=== PATIENT | male | born 1975 | race Caucasian/White ===

== ENCOUNTER 2017-07-20 22:50 | Emergency (ER) | payer OTHER ==
[~2017-07-20] VITALS: Ht 167.6 cm; Wt 68.6 kg
[2017-07-20 23:20] VITALS: Ht 167.6 cm; Wt 68.6 kg
[2017-07-21] MEDS ORDERED: SOD CHLORIDE 0.9% 1,000 ML IV STA (02:28)
[2017-07-21] MEDS ORDERED: ONDANSETRON 4 MG INJ IV STA (02:28)
[2017-07-21] MEDS ORDERED: KETOROLAC 30 MG INJ IV STA (02:28)
[2017-07-21] MEDS ORDERED: ACETAMINOPHEN 325 MG TAB PO ONE (02:30)
[2017-07-21 03:14] LABS: ABNORMAL IP MESSAGE 1; BASOPHILS % 0.2 % (0.0-2.0); HEMATOCRIT 42.7 % (42.0-52.0); HEMOGLOBIN 14.8 g/dl (14.0-18.0); LYMPHOCYTES # 1.9 10^3/ul (0.8-2.9); LYMPHOCYTES % 13.6 % (15.0-51.0); MEAN CORPUSCULAR HEMOGLOBIN 29.2 pg (29.0-33.0); MEAN CORPUSCULAR HGB CONC 34.7 g/dl (32.0-37.0); MEAN CORPUSCULAR VOLUME 84.4 fl (82.0-101.0); MEAN PLATELET VOLUME 9.8 fl (7.4-10.4); MONOCYTE # 1.7 10^3/ul (0.3-0.9); MONOCYTES % 12.5 % (0.0-11.0); NEUTROPHILS % 73.3 % (39.0-77.0); PLATELET COUNT 309 10^3/UL (140-415); POSITIVE DIFF @See below; RED BLOOD COUNT 5.06 10^6/ul (4.70-6.10); RED CELL DISTRIBUTION WIDTH 11.9 % (11.5-14.5); WHITE BLOOD COUNT 13.6 10^3/ul (4.8-10.8)
[2017-07-21 03:20] LABS: ADD UMIC YES; UR ASCORBIC ACID NEGATIVE (NEGATIVE); UR BILIRUBIN (Dip) NEGATIVE (NEGATIVE); UR BLOOD (Dip) NEGATIVE (NEGATIVE); UR CLARITY CLEAR (CLEAR); UR COLOR YELLOW (YELLOW); UR GLUCOSE (Dip) NEGATIVE (NEGATIVE); UR KETONES (Dip) TRACE mg/dL (NEGATIVE); UR LEUKOCYTE ESTERASE (Dip) TRACE Leu/ul (NEGATIVE); UR MUCUS FEW /HPF (NONE SEEN); UR NITRITE (Dip) NEGATIVE (NEGATIVE); UR RBC 0 /HPF (0-5); UR SPECIFIC GRAVITY (Dip) 1.021 (1.003-1.030); UR TOTAL PROTEIN (Dip) NEGATIVE (NEGATIVE); UR UROBILINOGEN (Dip) 1+ mg/dL (NEGATIVE)
--- NOTE | 2017-07-21 03:20 | RADRPT ---
PROCEDURE: CHEST - 1 VIEW CLINICAL INDICATION: 41-year-old male with chest/abdominal pain. TECHNIQUE: A single frontal AP portable view of the chest was performed. The images were reviewed on a PACS workstation. COMPARISON: None. FINDINGS: The cardiomediastinal silhouette within normal limit. There is no evidence for an infiltrate. Ther e is no evidence for congestive heart failure. There is no evidence for pneumothorax. The osseous st ructures are intact. IMPRESSION: No evidence for active cardiopulmonary disease. .Bretrand Singh MD, MD Date Time Electronically viewed and signed by .Bertrand Singh MD, MD on 07/21/2017 03:19 .M/
--- NOTE | 2017-07-21 03:21 | RADRPT ---
PROCEDURE: ULTRASOUND TESTICULAR CLINICAL INDICATION: 41-year-old male with testicular pain. TECHNIQUE: Multiple sonographic images of the scrotal region were obtained utilizing a linear arra y transducer with grayscale and color-flow and a Doppler imaging. The images were reviewed on a high -resolution PACS workstation. COMPARISON: None. FINDINGS: The right testicle is well visualized and has a normal echotexture. No focal areas of abnormal echog enicity are visualized. The right testicle measures 4.5 x 2.1 x 3.2 cm. There is normal color-flow. The right epididymis is visualized and measures approximately measures 9 x 7 mm. There is normal col or-flow. The left testicle is well visualized and has a normal echotexture. No focal areas abnormal echogenic ity are visualized. The left testicle measures 4.2 x 2.1 x 3.1 cm. There is normal color-flow. The l eft epididymis is visualized and measures approximately measures 13 x 8 mm. There is normal color-fl ow. IMPRESSION: Unremarkable testicular ultrasound. .Bertrand Singh MD, Date Time Electronically viewed and signed by .Bertrand Singh MD, MD on 07/21/2017 03:20 .M/
--- NOTE | 2017-07-21 03:28 | ERD ---
ER Documentation Chief Complaint Date/Time DATE: 07/21/17 TIME: 03:20 Chief Complaint FEVER, VOMITING X2 DAYS. LEFT TESTICLE PAIN TODAY. HPI 41-year-old male presents to the emergency department for complaints of left testicular pain fever and vomiting that started 2 days ago. Patient describes the pain as sharp pain, 6/10 scale, not better or worse with anything. Patient denies any abdominal pain. Patient denies any penile discharge. Patient denies any trauma in the testicular area. Patient denies any flank pain. Patient denies any hematuria. Patient denies any dysuria. Patient denies any blood in the stool or black stool. Patient denies any blood in the vomit. ROS All systems reviewed and are negative except as per history of present illness. Medications Home Meds Reported Medications [none] Unknown Strength No Conflict Check 07/21/17 Allergies Allergies: Coded Allergies: No Known Drug Allergy (Verified Allergy, Unknown, 07/20/17) PMhx/Soc Medical and Surgical Hx: pt denies Medical Hx, pt denies Surgical Hx Hx Alcohol Use: No Hx Substance Use: No Hx Tobacco Use: No Smoking Status: Never smoker Physical Exam Vitals Vital Signs Date Time Temp Pulse Resp B/P Pulse Ox O2 Delivery O2 Flow Rate FiO2 07/21/17 04:46 98.4 07/21/17 02:31 102.8 07/20/17 23:20 104.0 89 20 137/72 100 Physical Exam GENERAL: The patient is well developed and appropriate for usual state of health, in no apparent distress. CHEST: Clear to auscultation bilaterally. There are no rales, wheezes or rhonchi. HEART: Regular rate and rhythm. No murmurs, clicks, rubs or gallops. No S3 or S4. ABDOMEN: Soft, nontender and nondistended. Good bowel sounds. No rebound or guarding. No gross peritonitis. No gross organomegaly or masses. No Chris sign or McBurney point tenderness. BACK: No midline or flank tenderness. EXTREMITIES: Equal pulses bilaterally. There is no peripheral clubbing, cyanosis or edema. No focal swelling or erythema. Full range of motion. Grossly neurovascularly intact. NEURO: Alert and oriented. Cranial nerves 2-12 intact. Motor strength in all 4 extremities with 5/5 strength. Sensation grossly intact. Normal speech and gait. SKIN: There is no apparent rash or petechia. The skin is warm and dry. HEMATOLOGIC AND LYMPHATIC: There is no evidence of excessive bruising or lymphedema. No gross cervical, axillary, or inguinal lymphadenopathy. : Noted mild tenderness on palpation of the left testicular area, positive cremasteric reflex. No penile discharge. No fluctuance noted. Result Diagram: 07/21/17 0243 07/21/17 0243 Results 24 hrs Laboratory Tests Test 07/21/17 02:35 07/21/17 02:43 07/21/17 04:44 Urine Color YELLOW Urine Clarity CLEAR Urine pH 5.0 Urine Specific [place] 1.021 Urine Ketones TRACEmg/dL Urine Nitrite NEGATIVEmg/dL Urine Bilirubin NEGATIVEmg/dL Urine Urobilinogen 1+mg/dL Urine Leukocyte Esterase TRACELeu/ul Urine Microscopic RBC 0/HPF Urine Microscopic WBC 1/HPF Urine Mucus FEW/HPF Urine Hemoglobin NEGATIVEmg/dL Urine Glucose NEGATIVEmg/dL Urine Total Protein NEGATIVEmg/dl White Blood Count 13.610^3/ul Red Blood Count 5.0610^6/ul Hemoglobin 14.8g/dl Hematocrit 42.7% Mean Corpuscular Volume 84.4fl Mean Corpuscular Hemoglobin 29.2pg Mean Corpuscular Hemoglobin Concent 34.7g/dl Red Cell Distribution Width 11.9% Platelet Count 50939^3/UL Mean Platelet Volume 9.8fl Neutrophils % 73.3% Lymphocytes % 13.6% Monocytes % 12.5% Eosinophils % 0.0% Basophils % 0.2% Nucleated Red Blood Cells % 0.0/100WBC Neutrophils # 10.010^3/ul Lymphocytes # 1.910^3/ul Monocytes # 1.710^3/ul Eosinophils # 0.010^3/ul Basophils # 0.010^3/ul Nucleated Red Blood Cells # 0.010^3/ul Sodium Level 140mmol/L Potassium Level 4.9mmol/L Chloride Level 98mmol/L Carbon Dioxide Level 30mmol/L Anion Gap 17 Blood Urea Nitrogen 17mg/dl Creatinine 1.11mg/dl Glucose Level 161mg/dl Lactic Acid Level 3.1mmol/L 1.0mmol/L Calcium Level 9.0mg/dl Total Bilirubin 0.7mg/dl Direct Bilirubin 0.00mg/dl Indirect Bilirubin 0.7mg/dl Aspartate Amino Transf (AST/SGOT) 27IU/L Alanine Aminotransferase (ALT/SGPT) 68IU/L Alkaline Phosphatase 73IU/L Total Protein 7.7g/dl Albumin 4.8g/dl Globulin 2.90g/dl Albumin/Globulin Ratio 1.65 Lipase 199U/L Current Medications Medications (Trade) Dose Ordered Sig/Nena Route PRN Reason Start Time Stop Time Status Last Admin Dose Admin Sodium Chloride (NS) 1,000 ml @ 1,000 mls/hr Q1H STAT IV 07/21/17 02:28 07/21/17 03:27 DC 07/21/17 03:12 Ondansetron HCl (Zofran Inj) 4 mg ONCE STAT IV 07/21/17 02:28 07/21/17 02:30 DC 07/21/17 03:12 Ketorolac Tromethamine (Toradol) 30 mg ONCE STAT IV 07/21/17 02:28 07/21/17 02:30 DC 07/21/17 03:12 Acetaminophen 650 mg 650 mg ONCE ONCE PO 07/21/17 02:30 07/21/17 02:31 DC 07/21/17 03:12 Sodium Chloride 1,000 ml @ 1,000 mls/hr Q1H ONCE IV 07/21/17 04:00 07/21/17 04:59 DC 07/21/17 04:12 Ceftriaxone Sodium (Rocephin) 50 ml @ 100 mls/hr ONCE ONCE IVPB 07/21/17 04:00 07/21/17 04:29 DC 07/21/17 04:12 Patient was given medication for pain here in emergency department, after treatment, patient verbalized feeling much better. Patient's pain is improved. Patient was given Zofran here in the emergency department. After treatment, patient was able to tolerate po fluids here in the emergency department without any vomiting. There is no signs and symptoms of dehydration. Normal saline IV bolus was given here in emergency department for rehydration, patient tolerated IV fluids. PROCEDURE: CHEST - 1 VIEW CLINICAL INDICATION: 41-year-old male with chest/abdominal pain. TECHNIQUE: A single frontal AP portable view of the chest was performed. The images were reviewed on a PACS workstation. COMPARISON: None. FINDINGS: The cardiomediastinal silhouette within normal limit. There is no evidence for an infiltrate. There is no evidence for congestive heart failure. There is no evidence for pneumothorax. The osseous structures are intact. IMPRESSION: No evidence for active cardiopulmonary disease. .Bertrand Singh MD, MD Date Time Electronically viewed and signed by .Bertrand Singh MD, MD on 07/21/2017 03:19 .M/ CC: CHRIS QUIÑONES [employer] PROCEDURE: ULTRASOUND TESTICULAR CLINICAL INDICATION: 41-year-old male with testicular pain. TECHNIQUE: Multiple sonographic images of the scrotal region were obtained utilizing a linear array transducer with grayscale and color-flow and a Doppler imaging. The images were reviewed on a high-resolution PACS workstation. COMPARISON: None. FINDINGS: The right testicle is well visualized and has a normal echotexture. No focal areas of abnormal echogenicity are visualized. The right testicle measures 4.5 x 2.1 x 3.2 cm. There is normal color-flow. The right epididymis is visualized and measures approximately measures 9 x 7 mm. There is normal color-flow. The left testicle is well visualized and has a normal echotexture. No focal areas abnormal echogenicity are visualized. The left testicle measures 4.2 x 2.1 x 3.1 cm. There is normal color-flow. The left epididymis is visualized and measures approximately measures 13 x 8 mm. There is normal color-flow. IMPRESSION: Unremarkable testicular ultrasound. .Bertrand Singh MD, MD Date Time Electronically viewed and signed by .Bertrand Singh MD, MD on 07/21/2017 03:20 .M/ CC: CHRIS QUIÑONES [employer] Procedures/MDM Medical Decision making: Patient symptoms of testicular pain fever and vomiting most likely is consistent with early signs of epididymitis, there is some redness noted in the left testicular area, ultrasound does not show this at this time, as per discussion with my attending physician, Dr. Avilez, to treat patient with IV antibiotics for possible early epididymitis. Initial lactic acid was elevated but a repeat lactic acid was done and was negative and lower. Patient was still was given 2 L of normal saline IV fluids, IV Rocephin for treatment for infection, fever was controlled at this time, patient was advised to take medications as prescribed and return to emergency department for any worsening symptoms. No symptoms of any testicular torsion. Patient was given for Augmentin, ibuprofen, Tylenol, Zofran, is advised to follow-up with primary care doctor in 2 days for reevaluation of symptoms. Patient was advised to return to emergency department for any worsening symptoms. Disposition: Home. Stable. Departure Diagnosis: Primary Impression: Epididymitis Condition: Stable Patient Instructions: Epididymitis CHRIS QUIÑONES NP Jul 21, 2017 03:28
[2017-07-21 03:35] LABS: ALBUMIN 4.8 g/dl (3.3-4.9); ALBUMIN/GLOBULIN RATIO 1.65; BILIRUBIN,INDIRECT 0.7 mg/dl (0-1.1); BILIRUBIN,TOTAL 0.7 mg/dl (0.2-1.3); CREATININE 1.11 mg/dl (0.61-1.24); POTASSIUM 4.9 mmol/L (3.5-5.1); TOTAL PROTEIN 7.7 g/dl (6.1-8.1)
[2017-07-21] MEDS ORDERED: CEFTRIAXONE 1 GM/50 ML (PMX) 50 ML IVPB ONE (04:00)
[2017-07-21] MEDS ORDERED: SOD CHLORIDE 0.9% 1,000 ML IV ONE (04:00)
[2017-07-21 04:46] VITALS: TEMP 98.4
[2017-07-21 05:30] VITALS: BP 105/57; PULSE 71; RESP 16
[2017-07-21] MEDS ORDERED: IBUP-1542 PO (05:31)
[2017-07-21] MEDS ORDERED: ONDA4TAB14 PO (05:31)
[2017-07-21] MEDS ORDERED: AMOX1TAB10 PO (05:31)
== END 2017-07-21 05:39 | disposition home or self-care (01) ==
LOC: FTE 22:50
DX: N45.1 Epididymitis (principal)
CPT/HCPCS: 36415; 71010; 76870; 80053; 81001; 83605; 83690; 85025; 87040; 87086; 87400; 96374; 96375; 99285; J0696; J1885; J2405; J7030